=== PATIENT | male | born 1945 | race Caucasian/White ===

== ENCOUNTER 2019-07-16 09:38 | Outpatient (CLI) | payer MEDICARE, OTHER ==
--- NOTE | 2019-07-16 10:45 | CT ---
ABDOMEN CT WITHOUT CONTRAST PELVIC CT WITHOUT CONTRAST: HISTORY: Acute flank pain. COMPARISON: 06/28/2011. FINDINGS: Abdomen CT: Lung bases:Chronic changes with calcified granulomas. Heart size: Normal heart size. No significant pericardial fluid. Aorta: Normal caliber. No periaortic fat stranding. Solid organs: Limited evaluation due to lack of IV contrast. Grossly no solid organ abnormality. Ther e is atrophy of the pancreas. Lymph nodes: No gastrohepatic, retrocrural or periportal lymphadenopathy Gallbladder: Unremarkable. Mesentery: No mass, lymphadenopathy, free air or free fluid. Kidneys: Redemonstration of bilateral hypodensities in the left and right renal pelvis which have bee n previously demonstrated to be bilateral parapelvic cysts. There are bilateral pelvic calculi, some of which appear to be external to the collecting system. There does appear to be a calculus in t he proximal right ureter/ureteropelvic junction measuring 0.9 cm. There does appear to be mild distention of the right upper pole intrarenal collecting system. Questionable calculus in the left re nal pelvis, measuring 0.8 cm. No obvious associated obstructive uropathy in the left intrarenal collecting system. Bilateral ureters are decompressed. Alimentary canal: Limited evaluation by the lack of oral contrast. No evidence of bowel obstruction. Unremarkable ileocecal junction. Normal caliber appendix. Extensive diverticulosis. There appears be diverticulitis involving the junction of the descending colon and sigmoid colon. No evidence of ab scess or perforation. CT PELVIS: No mass, adenopathy, free air or free fluid. Urinary bladder: Unremarkable. Osseous structures: No lytic or blastic lesions. IMPRESSION: 1. Bilateral parapelvic cysts. 2. Calculus in the right ureteropelvic junction with associated mild dilatation of the right upper po le collecting system. Possible calculus in the left renal pelvis without definite associated obstructive uropathy. Further evaluation with a dedicated CT urogram is recommended. 3. Diverticulitis involving the left hemicolon as described above. No evidence of associated perforat ion or abscess. Results of study conveyed via [employer] Laura Gordillo07/16/2019 at 10:44 AM Code CR
== END 2019-07-16 09:39 | disposition home or self-care (01) ==
LOC: SCSCT 09:38
PROVIDERS: ATTEND Physician Assistant Medical
DX: R10.9 Unspecified abdominal pain (principal); K57.32 Diverticulitis of large intestine without perforation or abscess without bleeding; N20.1 Calculus of ureter; Z87.442 Personal history of urinary calculi
CPT/HCPCS: 74176

== ENCOUNTER 2019-08-09 10:42 | Outpatient (CLI) | payer MEDICARE, OTHER ==
[2019-08-09 13:56] LABS: Hemoglobin 16.6 g/dL (14.0-18.0); Mean Corpuscular HGB CONC 31.7 g/dL (32.0-36.0); Mean Corpuscular Hemoglobin 29.2 pg (27.0-31.0); Mean Platelet Volume 9.1 fL (7.4-10.4); Platelet Count 234 thou/uL (130-400); RBC Distribution Width 12.9 % (11.5-14.5); White Blood Cell (WBC) Count 8.6 thou/uL (4.8-10.8)
[2019-08-09 14:04] LABS: Platelet Count 231 thou/uL (130-400)
[2019-08-09 14:05] LABS: EPI 86 SEC (67-199)
[2019-08-09 14:11] LABS: PTT 26.3 SEC (22.9-36.1); Prothrombin Time 12.8 SEC (12.0-14.7)
[2019-08-09 14:55] LABS: Anion Gap 18 mmol/L (10-20); BUN (Urea Nitrogen) 23 mg/dL (8.4-25.7); Calc. Creatinine Clearance 0 mL/min (70-130); Calcium 10.1 mg/dL (7.8-10.44); Carbon Dioxide 21 mmol/L (23-31); Chloride 103 mmol/L (98-107); Estimated GFR-MDRD 52; Glucose 172 mg/dL (83-110); Potassium 4.7 mmol/L (3.5-5.1); Sodium 137 mmol/L (136-145)
--- NOTE | 2019-08-10 11:10 | EKG ---
Test Reason : Blood Pressure : / mmHG Vent. Rate : 071 BPM Atrial Rate : 071 BPM P-R Int : 146 ms QRS Dur : 106 ms QT Int : 386 ms P-R-T Axes : 016 026 -35 degrees QTc Int : 419 ms Normal sinus rhythm T wave abnormality, consider inferior ischemia Abnormal ECG When compared with ECG of 24-AUG-2015 10:47, Nonspecific T wave abnormality now evident in Lateral leads Confirmed by DR. Lissa VEGA ([id number]) on 08/10/2019 11:09:40 AM Referred By: MILAD Confirmed By:DR. Lissa VEGA
== END 2019-08-09 10:43 | disposition home or self-care (01) ==
LOC: LABBT 10:42
PROVIDERS: ATTEND Urology
DX: Z01.818 Encounter for other preprocedural examination (principal); N20.1 Calculus of ureter
CPT/HCPCS: 80048; 85027; 85576; 85610; 85730; 93005; 93010

== ENCOUNTER 2019-08-11 06:00 | Day surgery (SDC) | payer MEDICARE, OTHER ==
[2019-08-09 11:43] VITALS: BMI 33.9
[2019-08-11] MEDS ORDERED: Fentanyl 100 MCG/2 ML VIAL ONE (06:32)
--- NOTE | 2019-08-11 07:32 | RAD ---
Abdomen one view HISTORY: Renal stones. COMPARISON: 07/16/2019. FINDINGS: Visualized bowel gas pattern is nonspecific. Linear calcification projecting over the expec kalia location of the right renal pelvis correlate with recent CT. Lobular calcifications projecting over the left renal shadow also correlate with those seen on recent CT exam. Position unchanged. Prominent osteophyte projecting from the right side of the L2 inferior endplate mimics a retroperiton eal ureteral tract calcification. Malleolus project over the pelvis. Large area of heterotopic ossification associated with the left la teral ilium is stable. IMPRESSION: Bilateral renal calculi.
[2019-08-11] MEDS ORDERED: Iothalamate Meglumine 60% 50 ML VIAL FS ONE (08:49)
[2019-08-11] MEDS ORDERED: ePHEDrine/0.9% NaCl/PF SYRINGE 50 mg/10 ml ONE (09:14)
[2019-08-11] MEDS ORDERED: Dexamethasone 20 MG/5 ML VIAL ONE (09:14)
[2019-08-11] MEDS ORDERED: PHENYLEPHRINE-NS 100 MCG/ML 10 ML SYRINGE ONE (09:14)
[2019-08-11] MEDS ORDERED: Lidocaine 1% PF 5 ML VIAL ONE (09:14)
[2019-08-11] MEDS ORDERED: Ondansetron PF 4 MG/2 ML Vial ONE (09:14)
[2019-08-11] MEDS ORDERED: PROPOFOL 200 MG/20 ML VIAL ONE (09:14)
--- NOTE | 2019-08-11 09:57 | OP ---
DATE OF PROCEDURE: 08/11/2019 PREOPERATIVE DIAGNOSIS: Right proximal ureteral stone. POSTOPERATIVE DIAGNOSIS: Right proximal ureteral stone. PROCEDURES PERFORMED: Right extracorporeal shock wave lithotripsy, cystoscopy, right retrograde, no stent. ANESTHESIA: General. ESTIMATED BLOOD LOSS: Not recorded. FINDINGS: He had a right proximal ureteral stone treated with 3000 shocks at kV level 4 to 5. It appeared to fragment well. It kind of grouped altogether and changed its shape quite a bit, but because of the size, we went ahead and did a retrograde study at the end. Shot contrast from just below the stone, the stone pieces all broke apart and appeared to move up into the renal pelvis and calyceal system. There was no evidence of ureteral obstruction and so no stent was placed. DESCRIPTION OF PROCEDURE: Obtained written and verbal consent from the patient. He was taken to the operating suite. He did not receive IV antibiotics preop, but he did receive 2 of Ancef before the cysto. He was placed in a supine position on the treatment table. He was given a general anesthetic and oral intubation. The stone was easily visualized, was treated, and placed in treatment focal point. Shockwave therapy was commenced starting at a low kV and working up to level 4 and then level 5. Level 4 and 5 were alternated for the last couple of 1000 shocks. Total of 3000 shocks were given. Fluoroscopy was used intermittently to document fragmentation and reposition as necessary. After this was completed, we placed him in a dorsal lithotomy position, received 2 g of Ancef. He was sterilely prepped and draped. Cystoscopy was performed with a 22-Cymraes sheath, passed under direct vision through the male urethra into the urinary bladder with aid of a 30-degree lens. The bladder was filled and emptied. There was no evidence of bladder tumor, foreign body, or stone. There was some bloody efflux from the right ureter. A 5-Cymraes Pollack catheter was flushed with contrast, placed up the right ureter to just distal to the stone fragments. We injected contrast. The stone fragments all broke apart, mostly going up in the area of renal pelvis, did not appear to be really sizable fragments left. There was excellent drainage along the entire ureter and renal pelvis. No obstruction, so this reason, a stent was not placed. The bladder was drained. The instruments were removed. He was taken out of the dorsal lithotomy position, awakened, extubated, and taken by stretcher to recovery room. Job ID: [id number]
== END 2019-08-11 11:55 | disposition home or self-care (01) ==
LOC: SDC 06:00
PROVIDERS: ATTEND Urology
PROC: 0TF6XZZ Fragmentation in Right Ureter, External Approach (ICD-10-PCS; principal; 2019-08-11)
DX: N20.1 Calculus of ureter (principal); I25.10 Atherosclerotic heart disease of native coronary artery without angina pectoris; I10 Essential (primary) hypertension; Z79.02 Long term (current) use of antithrombotics/antiplatelets; Z79.82 Long term (current) use of aspirin; Z79.84 Long term (current) use of oral hypoglycemic drugs; Z79.899 Other long term (current) drug therapy
CPT/HCPCS: 74018; C1758; J1100; J2001; J2405; J2704; J3010

== ENCOUNTER 2025-05-03 10:38 | Outpatient (CLI) | payer MEDICARE ==
[2025-05-03 11:21] LABS: #Basophils 0.05 10x3/uL (0.0-0.2); #Eosinophils 0.15 10x3/uL (0.0-0.7); #Monocytes 0.49 10x3/uL (0.11-0.59); #Neutrophils 3.63 10x3/uL (1.40-6.50); %Basophils 0.9 % (0.0-1.0); %Eosinophils 2.6 % (0.0-10.0); %Lymphocytes 23.6 % (21.0-51.0); %Monocytes 8.6 % (0.0-10.0); %Neutrophils 63.3 % (42.0-75.0); Hematocrit 53.1 % (42.0-52.0); Hemoglobin 16.4 g/dL (14.0-18.0); Mean Corpuscular Hemoglobin 29.3 pg (27.0-31.0); Mean Corpuscular Volume 94.8 fL (78.0-98.0); Platelet Count 181 10x3/uL (130-400); Red Blood Cell (RBC) Count 5.60 mill/uL (4.70-6.10); White Blood Cell (WBC) Count 5.73 10x3/uL (4.8-10.8)
[2025-05-03 11:39] LABS: Anion Gap 16 mmol/L (10-20); BUN (Urea Nitrogen) 25 mg/dL (8.4-25.7); Calc. Creatinine Clearance 0 mL/min (70-130); Calcium 9.7 mg/dL (7.8-10.44); Carbon Dioxide 22 mmol/L (23-31); Chloride 106 mmol/L (98-107); Glucose 216 mg/dL (83-110); Potassium 4.8 mmol/L (3.5-5.1); Sodium 139 mmol/L (136-145)
[2025-05-03 11:44] LABS: INR-International Normal Ratio 1.2; PTT 33.7 sec (22.9-36.1); Prothrombin Time 15.0 sec (12.0-14.7)
== END 2025-05-03 10:39 | disposition home or self-care (01) ==
LOC: LABBT 10:38
PROVIDERS: ATTEND Urology
DX: Z01.818 Encounter for other preprocedural examination (principal); N20.0 Calculus of kidney
CPT/HCPCS: 80048; 85025; 85610; 85730; 87086; 93005; 93010

== ENCOUNTER 2025-05-10 05:52 | Day surgery (SDC) | payer MEDICARE, OTHER ==
[2025-05-03 10:50] VITALS: BMI 32.5
[2025-05-10] MEDS ORDERED: LevoFLOXacin D5W 500 mg (100 mL) BAG ONE (07:20)
[2025-05-10] MEDS ORDERED: PROPOFOL 20 ML ONE (07:32)
[2025-05-10] MEDS ORDERED: Lidocaine 1% PF 5 ML VIAL ONE (07:32)
[2025-05-10] MEDS ORDERED: fentaNYL PF 100 MCG/2 ML SYRINGE ONE (07:32)
[2025-05-10] MEDS ORDERED: PHENYLEPHRINE-NS 100 MCG/ML 10 ML SYRINGE ONE (07:43)
[2025-05-10] MEDS ORDERED: Ondansetron PF 4 MG/2 ML Vial ONE (07:50)
== END 2025-05-10 09:49 | disposition home or self-care (01) ==
LOC: SDC 05:52
PROVIDERS: ATTEND Urology
PROC: BT1FZZZ Fluoroscopy of Left Kidney, Ureter and Bladder (ICD-10-PCS; principal; 2025-05-10)
DX: N20.0 Calculus of kidney (principal); I10 Essential (primary) hypertension; E78.5 Hyperlipidemia, unspecified; E11.9 Type 2 diabetes mellitus without complications
CPT/HCPCS: 52332; 74420; J1100; J1956; J2704; Q9967; C1769; C2617

== ENCOUNTER 2025-05-17 14:52 | Outpatient (CLI) | payer MEDICARE, OTHER ==
[2025-05-17 15:30] LABS: #Basophils 0.04 10x3/uL (0.0-0.2); #Eosinophils 0.15 10x3/uL (0.0-0.7); #Monocytes 0.54 10x3/uL (0.11-0.59); #Neutrophils 4.17 10x3/uL (1.40-6.50); %Basophils 0.6 % (0.0-1.0); %Eosinophils 2.4 % (0.0-10.0); %Lymphocytes 21.3 % (21.0-51.0); %Monocytes 8.6 % (0.0-10.0); %Neutrophils 66.1 % (42.0-75.0); Hematocrit 54.2 % (42.0-52.0); Hemoglobin 16.7 g/dL (14.0-18.0); Mean Corpuscular Hemoglobin 29.2 pg (27.0-31.0); Mean Corpuscular Volume 94.8 fL (78.0-98.0); Platelet Count 203 10x3/uL (130-400); Red Blood Cell (RBC) Count 5.72 mill/uL (4.70-6.10); White Blood Cell (WBC) Count 6.30 10x3/uL (4.8-10.8)
[2025-05-17 15:55] LABS: Anion Gap 16 mmol/L (10-20); BUN (Urea Nitrogen) 27 mg/dL (8.4-25.7); Calc. Creatinine Clearance 0 mL/min (70-130); Calcium 9.9 mg/dL (7.8-10.44); Carbon Dioxide 24 mmol/L (23-31); Chloride 103 mmol/L (98-107); Glucose 297 mg/dL (83-110); Potassium 4.8 mmol/L (3.5-5.1); Sodium 138 mmol/L (136-145)
== END 2025-05-17 14:53 | disposition home or self-care (01) ==
LOC: LABBT 14:52
PROVIDERS: ATTEND Urology
DX: Z01.812 Encounter for preprocedural laboratory examination (principal); N20.0 Calculus of kidney
CPT/HCPCS: 80048; 85025; 87086

== ENCOUNTER 2025-05-24 10:06 | Day surgery (SDC) | payer MEDICARE, OTHER ==
[2025-05-17 14:58] VITALS: BMI 32.5
[2025-05-24] MEDS ORDERED: Lidocaine 1% PF 5 ML VIAL ONE (12:43)
[2025-05-24] MEDS ORDERED: fentaNYL PF 100 MCG/2 ML SYRINGE ONE (12:43)
[2025-05-24] MEDS ORDERED: PROPOFOL 20 ML ONE (12:43)
[2025-05-24] MEDS ORDERED: Rocuronium Bromide 10 MG/ML (10ML VIAL) ONE (12:43)
[2025-05-24] MEDS ORDERED: LevoFLOXacin D5W 500 mg (100 mL) BAG ONE (12:59)
[2025-05-24] MEDS ORDERED: PHENYLEPHRINE-NS 100 MCG/ML 10 ML SYRINGE ONE (13:35)
[2025-05-24] MEDS ORDERED: SUGAMMADEX SODIUM 200 MG/2 ML VIAL ONE (15:07)
[2025-05-24] MEDS ORDERED: HYDROcodone/Acetaminophen 5/325 mg Tablet ONE (17:02)
[2025-06-06 14:37] LABS: CA Oxalate Monohydrate 100 % (.); Color Brown (.); Stone Weight 511 mg (.)
== END 2025-05-24 17:20 | disposition home or self-care (01) ==
LOC: SDC 10:06
PROVIDERS: ATTEND Urology
PROC: 0TC18ZZ Extirpation of Matter from Left Kidney, Via Natural or Artificial Opening Endoscopic (ICD-10-PCS; principal; 2025-05-24)
PROC: 0T778DZ Dilation of Left Ureter with Intraluminal Device, Via Natural or Artificial Opening Endoscopic (ICD-10-PCS; 2025-05-24)
DX: N20.0 Calculus of kidney (principal); I10 Essential (primary) hypertension; I25.10 Atherosclerotic heart disease of native coronary artery without angina pectoris; E78.5 Hyperlipidemia, unspecified; Z96.653 Presence of artificial knee joint, bilateral; Z90.79 Acquired absence of other genital organ(s); Z79.899 Other long term (current) drug therapy
CPT/HCPCS: 74420; 82365; C1747; C1758; C1769 ×2; C2617; C9761; J1956; J2704; Q9967; 88300